=== PATIENT | male | born 1970 | race Caucasian/White ===

== ENCOUNTER 2024-06-27 06:28 | Day surgery (SDC) | payer BC, SELFPAY ==
[2024-06-27 13:44] VITALS: BMI 28.4
[2024-06-27 13:45] VITALS: BMI 28.4
[2024-06-27 13:47] VITALS: BP 137/84
[2024-06-27 17:21] VITALS: BP 119/84
[2024-06-27 17:30] VITALS: BP 94/58
[2024-06-27 17:46] VITALS: BP 118/74
[2024-06-27 18:01] VITALS: BP 132/86
[2024-06-30 05:50] LABS: Glucose - Point of Care 86 mg/dl (70-99)
== END 2024-06-27 18:09 | disposition home or self-care (01) ==
LOC: SDS 06:28
PROVIDERS: ATTENDING PHYSICIAN Internal Medicine Gastroenterology
DX: D12.0 Benign neoplasm of cecum (principal); K64.0 First degree hemorrhoids; Z86.0101 Personal history of adenomatous and serrated colon polyps
CPT/HCPCS: 45390; 88305; 82962

== ENCOUNTER 2024-06-28 05:04 | Inpatient (IN) | payer BC, SELFPAY ==
[2024-06-28] VITALS (17 sets, daily range): BP systolic 91–145; BP diastolic 55–91; BMI 32.2; BMI 29.3
[2024-06-28 01:55] LABS: % Basophils 0.4 % (0-2); % Eosinophils 1.3 % (0-6); % Immature Granulocytes 0.4 % (0-0.5); % Lymphocytes 25.2 % (20.5-51.1); % Monocytes 7.9 % (1.7-9.3); % Neutrophils 64.8 % (42.2-75.2); Absolute Eosinophils 0.2 10^3/uL (0-0.7); Absolute Immature Granulocytes 0.1 10^3/uL (0-0.05); Absolute Lymphocytes 2.9 10^3/uL (1.2-3.4); Absolute Monocytes 0.9 10^3/uL (0.1-0.6); Absolute Neutrophils 7.4 10^3/uL (1.4-6.5); Hematocrit 38.5 % (39.0-52.0); Hemoglobin 13.3 g/dL (13.0-18.0); Mean Corp Hgb Conc. 34.5 g/dL (33.0-37.0); Mean Corpuscular Hgb 29.6 pg (27.0-31.0); Mean Corpuscular Volume 85.6 fL (80.0-94.0); Mean Platelet Volume 9.5 fL (7.4-10.4); Nucleated Red Blood Cells % 0 % (-); Platelet Count 186 10^3/uL (130-400); White Blood Cell Count 11.4 10^3/uL (4.8-10.8)
[2024-06-28 02:22] LABS: ALT (SGPT) 17 U/L (0-50); AST (SGOT) 23 U/L (17-59); Alkaline Phosphatase 75 U/L (38-126); Blood Urea Nitrogen 21 mg/dl (9-20); Calcium 8.7 mg/dl (8.4-10.2); Carbon Dioxide 20 mmol/L (22-30); Chloride 105 mmol/L (98-107); Estimated Creatinine Clearance > 125 ml/min; Glucose 113 mg/dl (70-99); Sodium 140 mmol/L (135-145); Total Bilirubin 0.5 mg/dl (0.2-1.3); Total Protein 5.9 g/dl (6.3-8.2); eGFR > 60.00
--- NOTE | 2024-06-28 02:27 | ED.GENMED ---
History of Present Illness
<LAYA Penny - Last Filed: 06/28/24 17:53>
General
Chief Complaint: Rectal Bleeding
Source: patient
Exam Limitations: none
Time Seen by Provider: 06/28/24 02:05
History of Present Illness
History of Present Illness:
This is a 53 year old male that comes in by ambulance with c/o rectal bleeding. States that he had a colonoscopy on Sunday around 2pm. State that he went home and everything was fine. States that he eat dinner and went to bed. States that he felt
like he had to move his bowel so he got up and there was some dark brown stool with slight red tent. States that he did not think anything of this as he has hemorrhoids. States that there was a little on the tissue. Patient went back to bed and
45min later he needed to go again. States that he got up and fainted. States that he tried to get up again and fainted again. States that when he woke up the second time his son was calling 911. States that he did have a very large polyp removed
about 20mm today. States that he did have diarrhea and that he was dizzy. . Denies any fever, chills, chest pain, SOB, abd pain, nausea, vomiting, headache, urinary burning.
Past History
<LAYA Penny - Last Filed: 06/28/24 17:53>
Past History
ED Past Medical History: HTN, NIDDM and Other (GI bleeding after Colonoscopy)
ED Past Surgical History: None
Social History
Tobacco: Non-smoker
Alcohol: Occasional
Personal:
Living: with family
Review of Systems
<LAYA Penny - Last Filed: 06/28/24 17:53>
Review of Systems
All Other Systems: ROS reviewed and negative except as documented in HPI and ROS
Constitutional: Reports no symptoms; Denies fever or chills
EENT: Reports no symptoms
Respiratory: Reports no symptoms; Denies cough or trouble breathing
Cardiac: Reports no symptoms; Denies chest pain
ABD/GI: Reports diarrhea and bloody stools; Denies abdominal pain, nausea or vomiting
: Reports no symptoms; Denies dysuria, frequency or urgency
Musculoskeletal: Reports no symptoms
Skin: Reports no symptoms
Neurological: Reports dizzy; Denies headache
Psychiatric: Reports no symptoms
Phy Exam
<LAYA Penny - Last Filed: 06/28/24 17:53>
General Physical Exam
General Presentation: no apparent distress
General age: appears stated age
General Skin: warm, dry and pale
General Habitus: normal
General Mental: alert
General Hydration: dry mucous membranes
ENT Exam
ENT Exam: TM's normal, pharynx normal and neck supple
Eye Exam
Eye Exam: EOMI
Cardiovascular Exam
Cardiovascular Exam: regular rate/rhythm, no edema and normal peripheral pulses
Pulmonary Exam
Pulmonary Exam: no respiratory distress, no rales, chest non tender, no crackles, no rhonchi, no cough and other (Faint exp wheezing throughout)
Gastrointestinal Exam
Gastrointestinal Exam: non tender, soft, no organomegaly, no pulsatile mass, non distended and other (Hypoactive bowel sounds, External hemorrhoid noted. Burgundy stool noted in pants and patient rectal area. )
Musculoskeletal Exam
Musculoskeletal Exam: full ROM and no edema
Skin Exam
Skin Exam: warm/dry, no rash, no petechia and pallor
Psychiatric Exam
Psychiatric Exam: normal mood/affect
Course
<LAYA Penny - Last Filed: 06/28/24 17:53>
Orders/Labs/Results
Orders:
Orders
06/28/24 01:41
Electrocardiogram (*1) Urgent
Reason for Study: Syncope
EKG- Treatment ONCE
06/28/24 01:42
CMP [Comprehensive Metabolic Panel] Urgent
Complete Blood Count/With Diff Urgent
06/28/24 01:51
Type+Screen Urgent
06/28/24 02:13
ABO2 Routine
BBK Wristband Number:
Associate notified that ABO2 has been ordered: [id number]
Date: 06/28/24
Time: 02:06
Press Department Manager ID: [id number]
06/28/24 02:19
CT Abd/pelvis Angio W/wo Iv Urgent
Comment:
Reason For Exam: active GI bleeding after colonoscopy
06/28/24 03:51
0.9% Sodium Chloride 1000 ml [Nss] 1,000 ml IV BOLUS
06/28/24 04:17
Admit/Transfer Patient As Directed
Co-Sign Provider:
Level of Care: Inpatient admission
Assign to:: Telemetry
Physician / Group: Lavelle
Diagnosis: GI Bleed
Reason for Telemetry: Arrhythmia
Date to Stop Telemetry: 07/01/24
Time to Stop Telemetry: 11:00
Reason for Hospitalization: GI Bleed
Expected length of stay greater than two midnights?: Yes
ELOS- Estimated Length of Stay in days: 2
I certify the patient meets the requirements for IP care: Yes
PRN Pain Medication Management As Directed
May give lesser potent ordered pain med per pt: Yes
preference::
Protocol:: Medication orders for pain may be administered in a
manner that supports deferring to patient preference
when the pt is:
- Requesting an ordered lesser potent pain medication.
Least to most potent pain medications are defined
as: acetaminophen < NSAID < tramadol < opioids
(morphine, oxycodone, hydromorphone).
- Requesting a lesser dose of the same medication IF
ORDERED.
- Requesting a less intrusive route of administration
if both routes are prescribed by the provider (PO <
IV).
06/28/24 04:18
Code Status As Directed
Resuscitation Status: Full Code
06/28/24 Breakfast
Clear Liquid
At Your Request: Full Participation
06/28/24 07:14
0.9% Sodium Chloride 1000 ml [Nss] 1,000 ml IV 200 mls/hr
Dextrose 50%-Water [Dextrose 50% Syringe] 12.5 grams IV [id number] PRN
Glucagon [GlucaGen] 1 mg IM PRN PRN
Ondansetron Injectable [Zofran] 4 mg IV Q6HPRN PRN
06/28/24 07:14
GASTROINTESTINAL CONSULT Routine
Consulting Provider: cAosta Moody
Was physician already notified: Yes
Reason for consult: Lower GI Bleed / Post-Polypectomy
Activity As Directed
Activity Level: As Tolerated
Bedrest for limited time
Bedrest duration in hours then activity as indicated above:: 24
Comment: bedrest if active bleeding
Bedside Glucose Monitoring As Directed
Frequency: AC&HS
Additional Instructions:: Change to q6h if pt on TPN, tube feeding or not eating
I/O [Intake/ Output] As Directed
Frequency: Per unit guidelines
Orthostatic Vital Signs As Directed
Orthostatic VS Frequency: BID
Pneumatic Compression Sleeves As Directed
Type: Knee high
Vital Signs As Directed
Frequency: Per unit guidelines
DX Deep Vein Thrombosis Video Routine
06/28/24 07:30
Insulin Aspart Corrective Low [Novolog Flexpen-Low Resistance] See Protocol SC AC
06/28/24 08:00
Pantoprazole [Protonix IV] 40 mg IV DAILY
06/28/24 08:04
HH [H&H] Q6H
06/29/24 06:00
Basic Metabolic Panel IN AM
Glycohemoglobin (HgbA1c) IN AM
07/01/24 11:00
DC Protocol for Telemetry ONCE
Abnormal Lab Results
06/28/24
01:42
WBC 11.4 H 10^3/uL
(4.8-10.8)
RBC 4.50 L 10^6/uL
(4.70-6.10)
Hct 38.5 L %
(39.0-52.0)
Abs Immat Gran (auto) 0.1 H 10^3/uL
(0-0.05)
Absolute Neuts (auto) 7.4 H 10^3/uL
(1.4-6.5)
Absolute Monos (auto) 0.9 H 10^3/uL
(0.1-0.6)
Carbon Dioxide 20 L mmol/L
(22-30)
BUN 21 H mg/dl
(9-20)
Glucose 113 H mg/dl
(70-99)
Total Protein 5.9 L g/dl
(6.3-8.2)
06/28/24 01:42
06/28/24 01:42
Leukocytosis, carbon dioxie slightly low, Slight Dehydration. Glucose nonfasting. Total protein low.
Vital Signs
Initial and Last Documented VS:
Initial Vital Signs
BP
91/55
06/28/24 01:30
Last Documented Vital Signs
Temp Pulse Resp BP Pulse Ox
98.1 F 88 20 127/86 96
06/28/24 11:00 06/28/24 11:00 06/28/24 11:00 06/28/24 11:00 06/28/24 11:00
<Etta Diamond, DO - Last Filed: 06/28/24 04:01>
Orders/Labs/Results
Orders:
Orders
06/28/24 01:41
Electrocardiogram (*1) Urgent
Reason for Study: Syncope
EKG- Treatment ONCE
06/28/24 01:42
CMP [Comprehensive Metabolic Panel] Urgent
Complete Blood Count/With Diff Urgent
06/28/24 01:51
Type+Screen Urgent
06/28/24 02:13
ABO2 Routine
BBK Wristband Number:
Associate notified that ABO2 has been ordered: [id number]
Date: 06/28/24
Time: 02:06
Press Department Manager ID: [id number]
06/28/24 02:19
CT Abd/pelvis Angio W/wo Iv Urgent
Comment:
Reason For Exam: active GI bleeding after colonoscopy
06/28/24 03:51
0.9% Sodium Chloride 1000 ml [Nss] 1,000 ml IV BOLUS
06/28/24 04:17
Admit/Transfer Patient As Directed
Co-Sign Provider:
Level of Care: Inpatient admission
Assign to:: Telemetry
Physician / Group: Lavelle
Diagnosis: GI Bleed
Reason for Telemetry: Arrhythmia
Date to Stop Telemetry: 07/01/24
Time to Stop Telemetry: 11:00
Reason for Hospitalization: GI Bleed
Expected length of stay greater than two midnights?: Yes
ELOS- Estimated Length of Stay in days: 2
I certify the patient meets the requirements for IP care: Yes
PRN Pain Medication Management As Directed
May give lesser potent ordered pain med per pt: Yes
preference::
Protocol:: Medication orders for pain may be administered in a
manner that supports deferring to patient preference
when the pt is:
- Requesting an ordered lesser potent pain medication.
Least to most potent pain medications are defined
as: acetaminophen < NSAID < tramadol < opioids
(morphine, oxycodone, hydromorphone).
- Requesting a lesser dose of the same medication IF
ORDERED.
- Requesting a less intrusive route of administration
if both routes are prescribed by the provider (PO <
IV).
06/28/24 04:18
Code Status As Directed
Resuscitation Status: Full Code
06/28/24 Breakfast
Clear Liquid
At Your Request: Full Participation
06/28/24 07:14
0.9% Sodium Chloride 1000 ml [Nss] 1,000 ml IV 200 mls/hr
Dextrose 50%-Water [Dextrose 50% Syringe] 12.5 grams IV [id number] PRN
Glucagon [GlucaGen] 1 mg IM PRN PRN
Ondansetron Injectable [Zofran] 4 mg IV Q6HPRN PRN
06/28/24 07:14
GASTROINTESTINAL CONSULT Routine
Consulting Provider: Acosta Moody
Was physician already notified: Yes
Reason for consult: Lower GI Bleed / Post-Polypectomy
Activity As Directed
Activity Level: As Tolerated
Bedrest for limited time
Bedrest duration in hours then activity as indicated above:: 24
Comment: bedrest if active bleeding
Bedside Glucose Monitoring As Directed
Frequency: AC&HS
Additional Instructions:: Change to q6h if pt on TPN, tube feeding or not eating
I/O [Intake/ Output] As Directed
Frequency: Per unit guidelines
Orthostatic Vital Signs As Directed
Orthostatic VS Frequency: BID
Pneumatic Compression Sleeves As Directed
Type: Knee high
Vital Signs As Directed
Frequency: Per unit guidelines
DX Deep Vein Thrombosis Video Routine
06/28/24 07:30
Insulin Aspart Corrective Low [Novolog Flexpen-Low Resistance] See Protocol SC AC
06/28/24 08:00
Pantoprazole [Protonix IV] 40 mg IV DAILY
06/28/24 08:04
HH [H&H] Q6H
06/29/24 06:00
Basic Metabolic Panel IN AM
Glycohemoglobin (HgbA1c) IN AM
07/01/24 11:00
DC Protocol for Telemetry ONCE
Abnormal Lab Results
06/28/24
01:42
WBC 11.4 H 10^3/uL
(4.8-10.8)
RBC 4.50 L 10^6/uL
(4.70-6.10)
Hct 38.5 L %
(39.0-52.0)
Abs Immat Gran (auto) 0.1 H 10^3/uL
(0-0.05)
Absolute Neuts (auto) 7.4 H 10^3/uL
(1.4-6.5)
Absolute Monos (auto) 0.9 H 10^3/uL
(0.1-0.6)
Carbon Dioxide 20 L mmol/L
(22-30)
BUN 21 H mg/dl
(9-20)
Glucose 113 H mg/dl
(70-99)
Total Protein 5.9 L g/dl
(6.3-8.2)
06/28/24 01:42
06/28/24 01:42
Vital Signs
Initial and Last Documented VS:
Initial Vital Signs
BP
91/55
06/28/24 01:30
Last Documented Vital Signs
Temp Pulse Resp BP Pulse Ox
98.1 F 88 20 127/86 96
06/28/24 11:00 06/28/24 11:00 06/28/24 11:00 06/28/24 11:00 06/28/24 11:00
<LAYA Penny - Last Filed: 06/28/24 17:53>
MDM/Problems Addressed
Differential Diagnosis Includes:
GI bleeding post colonoscopy,
MDM/Problems Addressed:
This is a 53 year old male that comes in by ambulance with c/o GI bleeding after a colonoscopy on Sunday and Syncope.
Will check labs, Get CTA for any active bleeding and admit patient.
Chronic conditions affecting care: DM
Acute Exacerbation and/or Progression of Chronic Illness:
NA
<LAYA Penny - Last Filed: 06/28/24 17:53>
*Pulse Oximetry
Patient hypoxic: no
*EKG
Interpreted by ED Provider?: Yes
Heart Rate: 64
Rate: normal
Rhythm: sinus
Steinauer: left axis deviation
Interval: normal interval
QRS Pattern: normal QRS
Ischemia: no ischemia
*Claim Examiner Interpretation
Rate: normal
Heart Rate: 64
Rhythm: sinus
*Critical Care Note
Total Time (30-74mins, 75-104mins- exclusive of procedures): Not Applicable
<Etta Diamond DO - Last Filed: 06/28/24 04:01>
*Radiology
Radiology exam reviewed: radiology read reviewed
*Critical Care Note
Total Time (30-74mins, 75-104mins- exclusive of procedures): 30
comment:
Critical care statement: A total of 30 minutes of critical care time was provided for this patient. This includes management of unstable vital signs, evaluation of the patient at bedside, reviewing the patient's pertinent medical records, discussion
with consultants, review of old EKGs and review of pertinent medical records. This time with separate from time utilized to perform the aforementioned documented procedures
ED Attending Note
<LAYA Penny - Last Filed: 06/28/24 17:53>
-
Portions of this chart may have been created with voice recognition software.� Occasional wrong word or��sound alike� substitutions may have occurred due to the inherent limitations of voice recognition software.
<Etta Diamond, DO - Last Filed: 06/28/24 04:01>
ED Attending Note
Patient seen and examined by attending physician: Yes
I performed a history and physical exam of patient and discussed management with resident, I reviewed resident's note and agree with documented findings and plan of care.: Yes
ED Attending Note:
53-year-old gentleman who underwent routine surveillance colonoscopy yesterday with removal of large polyp at ileocecal valve. Was doing well until tonight when he developed acute rectal bleeding, passing a large amount of maroon clotted blood with
2 episodes of syncope at home.
No recurrent bleeding since arrival to the ED but moderate hypotension initially, has improved with IV fluid bolus.
Initial hemoglobin 13.3.
CT angio abdomen pelvis shows no active extravasation but reportedly suboptimal bolus timing of arterial phase. It is reassuring however that patient has had no recurrent bleeding since arrival to the ED.
GI on-call, Dr. Moody, aware. She recommended consult to IR if CT shows active extravasation.
Will admit to hospitalist service.
Discharge Plan
Departure
Patient Disposition: Admit
Date of Disposition: 06/28/24
Time of Disposition: 03:57
Admit to: IMU
Admit to doctor: Lavelle
Presentation/result/management discussed w/ accepting MD/DO: Hospitalist
Patient with high blood pressure during this ER visit?: No
Condition: Serious
Discharge Problem:
Acute lower gastrointestinal hemorrhage, Post-polypectomy bleeding
Interventions
Interventions:
*Risk Screen - Suicide Last Done: 06/28/24 01:46
*General Assessment Last Done: 06/28/24 01:47
*Neglect/Abuse Screening Last Done: 06/28/24 01:48
ED- Fall Risk Assessment Last Done: 06/28/24 01:51
*ED COVID-19 Vaccine History Last Done: 06/28/24 01:51
*Nursing Disposition Last Done: 06/28/24 06:42
KG-Nelbdz-Boyhezfwiz Assessment Last Done: 06/28/24 02:01
ED- Cardiac Assessment Last Done: 06/28/24 02:00
ED- Pulmonary Assessment Last Done: 06/28/24 02:00
Discharge Date and Time
Discharge Date/Time: 06/28/24 06:44
[2024-06-28] MEDS: NSS 1000 IV ×4 (03:52→17:58)
--- NOTE | 2024-06-28 04:22 | HPS.HSE ---
Family Physician
-
Family Physician: Ismael Raza
Chief Complaint
-
Syncope / BRBPR
History of Present Illness
Patient is a 53y M with PMH significant for hypertension and DM-II who presents to ED complaining of syncope at home and BRBPR. Patient presented to for colonoscopy / polypectomy on 06/27/24. He underwent resection of polyp (20mm) at the
ileocecal valve. There was incomplete resection and patient was treated further with APC. He felt well following the procedure and throughout the evening. he ate dinner this evening and went to bed.
He woke around 12 midnight with urge to move his bowels. He passed a dark, liquid BM with perhaps tiny streak of blood on the toilet paper. He otherwise felt well and went back to bed.
He woke about 45 minutes later - again with the urge to move his bowels. He stood to walk to the bathroom, but he fell to the floor. ? LOC / syncope at that time. He attempted to get up and had definite episode of syncope at that point. Patient
was noted to be incontinent of moderate amount of grossly bloody stool and clots.
Family called EMS and patient was brought to the ED for further evaluation.
In the ED, patient has passed no additional stool. He continues to feel weak and notes lightheadedness with sitting upright or standing.
Medical History
Past Medical History
Past Medical History: Reports Other
Additional Past Medical History:
Hypertension
DM-II
Colon Polyps
Past Surgical History: Reports None
Social History
Tobacco: Non-smoker
Alcohol: Occasional (Rarely.)
Drug: None
Family History
Family History: Adopted
Allergies / Home Medications
Allergies reflects when Allergies were last updated in [facility].
Home Medications with original date entered in [facility]
Allergy/Medication List:
Allergies
Allergy/AdvReac Type Severity Reaction Status Date / Time
No Known Allergies Allergy Verified 06/27/24 13:33
Home Medications
amlodipine 10 mg tablet 10 mg PO DAILY 06/27/24
atorvastatin 10 mg tablet 10 mg PO DAILY 06/27/24
lisinopril 40 mg tablet 40 mg PO DAILY 06/27/24
metformin 500 mg tablet 1,500 mg PO DAILY 06/27/24
metoprolol succinate 50 mg tablet,extended release 24 hr 50 mg PO DAILY 06/27/24
Review of Systems
-
History Source: Patient
A 12 point ROS was completed and negative except as noted: Yes
Constitutional: Reports Fatigue; Denies Fever or Chills
Respiratory: Denies Cough or Trouble Breathing
Cardiac: Reports Syncope; Denies Chest Pain or Palpitations
Abdomen/GI: Reports Diarrhea, Bloody Stools and Other (Incontinence); Denies Abdominal Pain, Nausea or Vomiting
: Denies Dysuria, Frequency or Incontinence
Musculoskeletal: Denies Joint Pain
Neurological: Reports Dizzy; Denies Headache
Physical Exam
Vital Signs
Vital Signs
Temp Pulse Resp BP Pulse Ox
97.9 F 67 11 120/69 100
06/28/24 01:50 06/28/24 03:15 06/28/24 03:15 06/28/24 03:05 06/28/24 03:15
Physical Exam
General: Other (53y M in no acute distress.)
HEENT: Moist mucous membranes and PERRLA
Respiratory: Clear; No Wheezes, Rales or Rhonchi
Cardiac: S1/S2 and Regular Rhythm; No Murmur
GI: Soft, Non Tender, Non Distended and Normal Bowel Sounds
Musculoskeletal: No Clubbing, No Cyanosis and No Edema
Neuro: AO x 3
Laboratory Results
-
06/28/24 01:42
06/28/24 01:42
Laboratory Results
Total Bilirubin 0.5 mg/dl (0.2-1.3) 06/28/24 01:42
AST 23 U/L (17-59) 06/28/24 01:42
ALT 17 U/L (0-50) 06/28/24 01:42
Alkaline Phosphatase 75 U/L (38-126) 06/28/24 01:42
Impression/Plan
-
A/P: Patient is a 53y M with PMH significant for hypertension and DM-II who presents to ED for evaluation of syncope and BRBPR s/p colonoscopy / polypectomy.
Lower GI Bleed
Acute Post-Polypectomy Bleed
Syncope secondary to the above
- Admit for further evaluation and treatment.
- BP borderline in the ED - likely due to combination of volume / blood losses and BP medications.
- IVF support / volume replacement.
- Follow for any new / recurrent bleeding.
- CTA done in the ED with no evidence of active / ongoing bleeding at present.
- GI evaluation for additional recommendations
- Follow H&H for any changes and consider transfusion if needed.
- Monitor on telemetry overnight given syncope.
- Bedrest for now.
Benign Hypertension
- Presently hypotensive as noted above.
- Hold home antihypertensive regimen acutely.
- Resume gradually once BP is improved / stable.
DM-II
- Stable. Hold PO metformin s/p dye study.
- Follow glucose and cover with SSI if needed.
DVT Prophylaxis: SCDs
Code Status: Full
[2024-06-28 07:10] LABS: Glucose - Point of Care 123 mg/dl (70-99)
[2024-06-28] MEDS: NSS (PRESERVATIVE FREE) 10 ML IV (07:51)
[2024-06-28] MEDS: PROTONIX IV 40 MG IV (07:51)
[2024-06-28 08:23] LABS: Hematocrit 36.5 % (39.0-52.0); Hemoglobin 12.3 g/dL (13.0-18.0)
--- NOTE | 2024-06-28 08:26 | CON.GI ---
Addendum entered and electronically signed by Acosta Moody MD 06/28/24 17:14:
I saw and examined the patient.
The MANAGER E [employer] or PA's note was reviewed and I agree with the note.
Comment:
Pt is a 53 y/o man who had a colonoscopy with a large ileocecal vave removal via EMR on 06/27. As per Dr. Ring, involved and difficult due to location. Starting at night he had a few episodes of rectal bleeding and near syncope. Came to ER and had
a CTA that showed colon with a lot of fluid but no active bleeding. also splenomegaly. He did have one more episode of rectal bleeding since being in the hospital but vitals have remained stable. hgb 13.2 to 12.3 to 11.6.
impression:
postpolypectomy bleed
plan:
1. d/w Dr. Ring that polypectomy site hidden and difficult. Ideally will watch and acute bleeding likely will resolve on its own. Site of bleeding likely difficult to visualize
2. If patient has signs of recurrent bleeding can prep for colonoscopy vs IR for embolization depending on stability of patient
3. follow hgb, follow vital signs; still expect some blood per rectum as colon did have residual blood on CT
4. await path
5. will need repeat colonoscopy in 6 months
d/w sister and pt at length
Original Note:
Consultation
-
Date/Time Consultation Requested: 06/28/24714
Date/Time Consultation Performed: 06/28/24829
Requesting Provider: Jordon Valderrama DO
Performing Provider: LAYA Kauffman, Acosta Moody MD
Reason for Consultation: GI bleed
Medical History
Chief Complaint / HPI
Chief Complaint: GI bleed
History of Present Illness:
Pt is a 53yo with hx HTN, NIDDM, colon polyps with hx colonoscopy in 05/2023 with One diminutive polyp in the cecum,and questionable polyp at IC valve. biopsy revealed TA of both polyps. Pt was recommended repeat colonoscopy and went 06.[address] Ring with noted hemorrhoids, and 20mm polyp at IC valve with EMR and difficult to access with incomplete resection with multiple maneuvers and APC completed with bx pending. He was recommended again attempt in 3-6 months. He now present with
bleeding. On admission hbg was 13.3 with drop to 12.3 after admission. In review with patient he was feeling well post procedure. He had BM with some darker stool and tinge of pink at 11pm then 45 min later larger bloody stools. He then has
episodes of syncope and has had about 4 stools since that time. Last stool with dark burgundy blood. 06/28 CTA neg active bleed, mod fluid in colon , mild to mod splenomegaly.
He otherwise denies GI issues with dysphagia, GERD, nausea, vomiting, abdominal pain, chronic diarrhea or constipation.
Past Medical History
Past Medical History: HTN, NIDDM and Other (colon polyps)
Social History
Tobacco: Non-Smoker
Alcohol: Occasional
Drug: None
Personal:
Living: With Family
Employment: Employed
Family History
Family History: Adopted
Allergies / Home Medications
Allergy/AdvReac Type Severity Reaction Status Date / Time
No Known Allergies Allergy Verified 06/27/24 13:33
�Medication �Instructions �Recorded
amlodipine 10 mg tablet 10 mg PO DAILY 06/27/24
atorvastatin 10 mg tablet 10 mg PO DAILY 06/27/24
lisinopril 40 mg tablet 40 mg PO DAILY 06/27/24
metformin 500 mg tablet 1,500 mg PO DAILY 06/27/24
metoprolol succinate 50 mg 50 mg PO DAILY 06/27/24
tablet,extended release 24 hr
Review of Systems
-
History Source: Patient
Constitutional: Reports No Symptoms
EENT: Reports No Symptoms
Respiratory: Reports No Symptoms
Cardiac: Reports Syncope
Abdomen/GI: Reports Bloody Stools
: Reports No Symptoms
Musculoskeletal: Reports No Symptoms
Skin: Reports No Symptoms
Neurological: Reports Weakness
Endocrine: Reports No Symptoms
Hematologic/Lymphatic: Reports Bleeding
Vital Signs
Temp Pulse Resp BP Pulse Ox
97.9 F 58 14 106/64 97
06/28/24 06:42 06/28/24 06:42 06/28/24 06:42 06/28/24 06:42 06/28/24 06:42
Physical Exam
Exam
General: Well Developed, Well Nourished and No Apparent Distress
HEENT: Normocephalic and Anicteric
Respiratory: Clear
Cardiac: Regular Rhythm
GI: Soft, Non Tender and Non Distended
Rectal: Other (per nursing recent stool with dark burgundy color noted in picture )
Musculoskeletal: No Clubbing and No Cyanosis
Skin: Warm and Dry
Neuro: Awake, Alert and AO x 3
Psych: Calm
Results
WBC 11.4 10^3/uL (4.8-10.8) H 06/28/24 01:42
Hgb 12.3 g/dL (13.0-18.0) L 06/28/24 08:04
Hct 36.5 % (39.0-52.0) L 06/28/24 08:04
MCV 85.6 fL (80.0-94.0) 06/28/24 01:42
Plt Count 186 10^3/uL (130-400) 06/28/24 01:42
Absolute Neuts (auto) 7.4 10^3/uL (1.4-6.5) H 06/28/24 01:42
Sodium 140 mmol/L (135-145) 06/28/24 01:42
Potassium 4.0 mmol/L (3.5-5.1) 06/28/24 01:42
Chloride 105 mmol/L (98-107) 06/28/24 01:42
Carbon Dioxide 20 mmol/L (22-30) L 06/28/24 01:42
BUN 21 mg/dl (9-20) H 06/28/24 01:42
Creatinine 0.9 mg/dL (0.7-1.3) 06/28/24 01:42
Calcium 8.7 mg/dl (8.4-10.2) 06/28/24 01:42
Total Bilirubin 0.5 mg/dl (0.2-1.3) 06/28/24 01:42
AST 23 U/L (17-59) 06/28/24 01:42
ALT 17 U/L (0-50) 06/28/24 01:42
Alkaline Phosphatase 75 U/L (38-126) 06/28/24 01:42
Diagnostic Image Results:
06/28 CTA
1. No CTA evidence for acute active gastrointestinal bleeding.
2. Mild diffuse fluid distention of the colon.
3. Mild to moderate splenomegaly.
4. Transitional lumbosacral vertebral segment.
Prior GI Procedures:
EGD:
Colonoscopy: 06/27/24 Travis Ring - Hemorrhoids found on perianal exam.
- One 20 mm polyp at the ileocecal valve, removed with
mucosal resection. Incomplete resection. Resected
tissue retrieved. Treated with argon plasma
coagulation (APC).
- Internal hemorrhoids.
- Mucosal resection was performed. Resection was felt
to be incomplete. The resected tissue was retrieved.
colonoscopy:05/21/23 - One diminutive polyp in the cecum, removed with a
jumbo cold forceps. Resected and retrieved.
- One questionable polyp at the ileocecal valve.
Biopsied.
- The examination was otherwise normal.
bx TA
Assessment / Plan
-
Pt is a 53yo with hx HTN, NIDDM, colon polyps with hx colonoscopy in 05/2023 with One diminutive polyp in the cecum,and questionable polyp at IC valve. biopsy revealed TA of both polyps. Pt was recommended repeat colonoscopy and went 06.[address] Ring with noted hemorrhoids, and 20mm polyp at IC valve with EMR and difficult to access with incomplete resection with multiple maneuvers and APC completed with bx pending. He was recommended again attempt in 3-6 months. He now present with
bleeding. On admission hbg was 13.3 with drop to 12.3 after admission. In review with patient he was feeling well post procedure. He had BM with some darker stool and tinge of pink at 11pm then 45 min later larger bloody stools. He then has
episodes of syncope and has had about 4 stools since that time. Last stool with dark burgundy blood. 06/28 CTA neg active bleed, mod fluid in colon , mild to mod splenomegaly.
-post polypectomy bleeding
-syncope prior to admission
-06/27 partial EMR of IC valve polyp
-hx adenomatous polyps
-mild anemia
-mild leukocytosis
other med problems:
-HTN
-NIDDM
-mild SM on CT
PLAN:
etiology of bleeding related to post polypectomy bleeding with EMR completed 06/27 vs other
plan for monitor of stools
if increased will need to consider prep and colonoscopy vs repeat CTA(neg on admission)/angio
trend hbg /transfuse as needed
NPO
bedrest with bleeding and syncope
cont IVF
PPI daily
update pt on plan
-
-
Thank you for consultation and allowing me to participate in the patient's care. Please call the store consultant GI physician during the after hours with any questions or concerns.
--- NOTE | 2024-06-28 08:51 | W.PN.HOSP.TC ---
Today's Communication/Plan
-
see A/P
Assessment / Plan
Assessment / Plan
HPI: 53 yo M with PMH significant for hypertension and DM-II who presented to ED complaining of syncope at home and BRBPR. Patient presented to for colonoscopy / polypectomy on 06/27/24. He underwent resection of polyp (20 mm) at the ileocecal
valve. There was incomplete resection and patient was treated further with APC. He felt well following the procedure and throughout the evening. He ate dinner and went to bed.
He woke around 12 midnight with urge to move his bowels. He passed a dark, liquid BM with perhaps tiny streak of blood on the toilet paper. He otherwise felt well and went back to bed.
He woke about 45 minutes later - again with the urge to move his bowels. He stood to walk to the bathroom, but he fell to the floor. ?LOC / syncope at that time. He attempted to get up and had definite episode of syncope at that point. Patient
was noted to be incontinent of moderate amount of grossly bloody stool and clots.
Family called EMS and patient was brought to the ED for further evaluation.
In the ED, patient has passed no additional stool. He continues to feel weak and notes lightheadedness with sitting upright or standing.
A/P:
# Lower GI Bleed likely from Acute Post-Polypectomy Bleed
# Syncope secondary to the above
BP was borderline on admission, improved s/p IVF support / volume replacement.
Follow for any new / recurrent bleeding.
CTA done in the ED with no evidence of active / ongoing bleeding at present.
GI evaluation for additional recommendations
Follow H&H for any changes and consider transfusion if needed.
Monitor on telemetry overnight given syncope.
PT OT eval
# Benign Hypertension
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
# DM-II, Stable.
Hold PO metformin s/p dye study.
Follow glucose and cover with SSI if needed.
DVT Prophylaxis: SCDs
Code Status: Full
Anticipated Discharge: Within 24 hours
Subjective/Interval History
-
Date of Service: June 28, 2024
Objective Data
-
Labs:
Laboratory Results
06/28/24 06/28/24 06/28/24
01:42 08:04 13:14
WBC 11.4 H
Hgb 13.3 12.3 L Pending
Hct 38.5 L 36.5 L Pending
Plt Count 186
Sodium 140
Potassium 4.0
Chloride 105
Carbon Dioxide 20 L
BUN 21 H
Creatinine 0.9
Glucose 113 H
Calcium 8.7
Total Bilirubin 0.5
AST 23
ALT 17
Alkaline Phosphatase 75
06/28/24
19:14
WBC
Hgb Pending
Hct Pending
Plt Count
Sodium
Potassium
Chloride
Carbon Dioxide
BUN
Creatinine
Glucose
Calcium
Total Bilirubin
AST
ALT
Alkaline Phosphatase
Vital Signs:
Vital Signs
Temp Pulse Resp BP Pulse Ox
36.7 C 87 16 127/75 98
06/28/24 07:00 06/28/24 07:00 06/28/24 07:00 06/28/24 07:00 06/28/24 07:00
I&O
06/27/24 06/28/24 06/29/24
06:59 06:59 06:59
Intake Total 2000 / 2000
Output Total 400 / 400
Balance 1600 / 1600
Review of Systems
-
All other systems: Reviewed and negative
Abdomen/GI: Reports Other (bloody BM)
Physical Exam
-
General: Well Developed, Well Nourished, No Apparent Distress, Comfortable and Conversant; Negative Respiratory Distress
HEENT: Normocephalic, Atraumatic, Nose Appears Normal and Ears Appear Normal; Negative Oxygen
Respiratory: Clear to Auscultation and Non Labored Respirations; Negative Accessory Resp Muscle Use
Cardiac: Regular Rhythm and S1/S2
GI: Soft, Nontender, Nondistended and Normal Bowel Sounds
Skin: Warm and Dry
Neuro: Awake, Alert, Oriented and AO x 3
Psych: Calm and Intact Judgement/Insight
Data Reviewed
-
Labs: Labs Reviewed by me
[2024-06-28 12:09] LABS: Glucose - Point of Care 96 mg/dl (70-99)
--- NOTE | 2024-06-28 12:35 | CM ---
Initial assessment completed with pt.
Pt is a 53yr old admitted with GI Bleed.
Pt lives with his sig other in a 2 story twin with 2 lisa.
Pt is indep at baseline and and expects to dc to home with no needs at dc.
Pt has no equip or hx of VN/SNF
PCP Ismael Raza
Pharm; [facility]
PLAN; Home with no needs identified
[2024-06-28 13:12] LABS: Hematocrit 33.9 % (39.0-52.0); Hemoglobin 11.6 g/dL (13.0-18.0)
[2024-06-28 17:24] LABS: Glucose - Point of Care 83 mg/dl (70-99)
[2024-06-28 21:15] LABS: Hematocrit 33.3 % (39.0-52.0); Hemoglobin 11.5 g/dL (13.0-18.0)
[2024-06-28 21:44] LABS: Glucose - Point of Care 90 mg/dl (70-99)
[2024-06-29] VITALS (7 sets, daily range): BP systolic 134–177; BP diastolic 84–104; PULSE 77–99; O2SAT 97
[2024-06-29] MEDS: NSS 1000 IV (02:39)
[2024-06-29 06:33] LABS: Hemoglobin 11.1 g/dL (13.0-18.0); Mean Corp Hgb Conc. 33.6 g/dL (33.0-37.0); Mean Corpuscular Hgb 30.1 pg (27.0-31.0); Mean Corpuscular Volume 89.4 fL (80.0-94.0); Mean Platelet Volume 9.9 fL (7.4-10.4); Platelet Count 146 10^3/uL (130-400); Red Blood Cell Count 3.69 10^6/uL (4.70-6.10); Red Cell Dist. Width 13.1 % (11.5-14.5); White Blood Cell Count 6.5 10^3/uL (4.8-10.8)
[2024-06-29 06:59] LABS: Blood Urea Nitrogen 9 mg/dl (9-20); Calcium 8.5 mg/dl (8.4-10.2); Carbon Dioxide 25 mmol/L (22-30); Chloride 109 mmol/L (98-107); Estimated Creatinine Clearance 112 ml/min; Glucose 88 mg/dl (70-99); Potassium 4.3 mmol/L (3.5-5.1); Sodium 142 mmol/L (135-145); eGFR > 60.00
--- NOTE | 2024-06-29 08:14 | W.PN.HOSP.TC ---
Addendum entered and electronically signed by Lisa Haynse MD 06/29/24 12:56:
Total DC time 40 minutes. Discussed with GI and RN
Original Note:
Today's Communication/Plan
-
see A/P
Assessment / Plan
Assessment / Plan
HPI: 53 yo M with PMH significant for hypertension and DM-II who presented to ED complaining of syncope at home and BRBPR. Patient presented to for colonoscopy / polypectomy on 06/27/24. He underwent resection of polyp (20 mm) at the ileocecal
valve. There was incomplete resection and patient was treated further with APC. He felt well following the procedure and throughout the evening. He ate dinner and went to bed.
He woke around 12 midnight with urge to move his bowels. He passed a dark, liquid BM with perhaps tiny streak of blood on the toilet paper. He otherwise felt well and went back to bed.
He woke about 45 minutes later - again with the urge to move his bowels. He stood to walk to the bathroom, but he fell to the floor. ?LOC / syncope at that time. He attempted to get up and had definite episode of syncope at that point. Patient
was noted to be incontinent of moderate amount of grossly bloody stool and clots.
Family called EMS and patient was brought to the ED for further evaluation.
In the ED, patient has passed no additional stool. He continues to feel weak and notes lightheadedness with sitting upright or standing.
A/P:
# Lower GI Bleed likely from Acute Post-Polypectomy Bleed
# Syncope secondary to the above
BP was borderline on admission, improved with IVF support / volume replacement.
Follow for any new / recurrent bleeding.
CTA done in the ED with no evidence of active / ongoing bleeding at present.
Follow H&H for any changes and consider transfusion if needed.
Monitor on telemetry given syncope.
PT OT eval
GI on board
# Benign Hypertension
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
# DM-II, Stable.
Hold PO metformin s/p dye study.
Follow glucose and cover with SSI if needed.
DVT Prophylaxis: SCDs
Code Status: Full
DW GI team. If repeat Hgb at noon today is stable, OK for discharge; if not, would keep for repeat scope.
DW RN
Anticipated Discharge: Within 24 hours
Subjective/Interval History
-
Date of Service: June 29, 2024
Objective Data
-
Labs:
Laboratory Results
06/28/24 06/29/24
21:09 05:41
WBC 6.5
Hgb 11.5 L 11.1 L
Hct 33.3 L 33.0 L
Plt Count 146 D
Sodium 142
Potassium 4.3
Chloride 109 H
Carbon Dioxide 25
BUN 9
Creatinine 0.9
Glucose 88
Calcium 8.5
Vital Signs:
Vital Signs
Temp Pulse Resp BP Pulse Ox
37.3 C 84 18 161/98 98
06/29/24 08:09 06/29/24 08:09 06/29/24 08:09 06/29/24 08:09 06/29/24 08:09
I&O
06/28/24 06/29/24 06/30/24
06:59 06:59 06:59
Intake Total 2000 / 2000 1200 / 1200
Output Total 400 / 400 700 / 700 1300 / 1300
Balance 1600 / 1600 500 / 500 -1300 / -1300
Review of Systems
-
All other systems: Reviewed and negative
Abdomen/GI: Reports Other (bloody BM has resolved )
Physical Exam
-
General: Well Developed, Well Nourished, No Apparent Distress, Comfortable and Conversant; Negative Respiratory Distress
HEENT: Normocephalic, Atraumatic, Nose Appears Normal and Ears Appear Normal; Negative Oxygen
Respiratory: Clear to Auscultation and Non Labored Respirations; Negative Accessory Resp Muscle Use
Cardiac: Regular Rhythm and S1/S2
GI: Soft, Nontender, Nondistended and Normal Bowel Sounds
Skin: Warm and Dry
Neuro: Awake, Alert, Oriented and AO x 3
Psych: Calm and Intact Judgement/Insight
Data Reviewed
-
Labs: Labs Reviewed by me
[2024-06-29] MEDS: NSS (PRESERVATIVE FREE) 10 ML IV (08:26)
[2024-06-29] MEDS: PROTONIX IV 40 MG IV (08:26)
[2024-06-29] MEDS: ZESTRIL 40 MG PO (08:27)
[2024-06-29] MEDS: TOPROL XL 50 MG PO (08:27)
[2024-06-29 09:23] LABS: Glucose - Point of Care 112 mg/dl (70-99)
--- NOTE | 2024-06-29 09:42 | W.PN.GI.CBS2 ---
Today's Communication / Plan
-
monitor hgb
Assessment / Plan
-
Pt is a 53yo with hx HTN, NIDDM, colon polyps with hx colonoscopy in 05/2023 with One diminutive polyp in the cecum,and questionable polyp at IC valve. biopsy revealed TA of both polyps. Pt was recommended repeat colonoscopy and went . with
Dr. Ring with noted hemorrhoids, and 20mm polyp at IC valve with EMR and difficult to access with incomplete resection with multiple maneuvers and APC completed with bx pending. He was recommended again attempt in 3-6 months. He now present with
bleeding. On admission hbg was 13.3 with drop to 12.3 after admission. In review with patient he was feeling well post procedure. He had BM with some darker stool and tinge of pink at 11pm then 45 min later larger bloody stools. He then has
episodes of syncope and has had about 4 stools since that time. Last stool with dark burgundy blood. 06/28 CTA neg active bleed, mod fluid in colon , mild to mod splenomegaly.
-post polypectomy bleeding
-syncope prior to admission
-06/27 partial EMR of IC valve polyp
-hx adenomatous polyps
-mild anemia
-mild leukocytosis
other med problems:
-HTN
-NIDDM
-mild SM on CT
PLAN:
hgb has been stable (over 11 on last 3 blood draws), redraw early afternoon, if still stable can have diet advanced and can be discharged
if drifting down would keep on clears and continue to monitor in case colonoscopy needed
PPI daily
Dr. Haynes and pt aware
Subjective
Subjective
Date of Service: June 29, 2024
Pt has not had any bms since yesterday. passing gas. no abdominal pain, tolerating clears
Objective
Data Reviewed
Laboratory Data:
Laboratory Results
06/29/24 05:41
Laboratory Results
Magnesium 2.0 mg/dl (1.6-2.3) 06/29/24 05:41
Total Bilirubin 0.5 mg/dl (0.2-1.3) 06/28/24 01:42
AST 23 U/L (17-59) 06/28/24 01:42
ALT 17 U/L (0-50) 06/28/24 01:42
Alkaline Phosphatase 75 U/L (38-126) 06/28/24 01:42
Vital Signs and I&O:
Vital Signs
Temp Pulse Resp BP Pulse Ox
99.2 F 84 18 161/98 98
06/29/24 08:09 06/29/24 08:09 06/29/24 08:09 06/29/24 08:09 06/29/24 08:09
I&O
06/28/24 06/29/24 06/30/24
06:59 06:59 06:59
Intake Total 2000 / 2000 1200 / 1200
Output Total 400 / 400 700 / 700 1300 / 1300
Balance 1600 / 1600 500 / 500 -1300 / -1300
Physical Exam
Physical Exam
GI: Soft, Non Distended and Non Tender
[2024-06-29 09:49] LABS: Glycohemoglobin (HgbA1c) 5.1 % (4.0-5.6)
[2024-06-29 11:11] LABS: Glucose - Point of Care 112 mg/dl (70-99)
[2024-06-29] MEDS: NSS IV ×2 (11:30)
[2024-06-29 12:18] LABS: Hematocrit 33.6 % (39.0-52.0); Hemoglobin 11.4 g/dL (13.0-18.0)
--- NOTE | 2024-06-29 12:47 | W.DCSUMMARY ---
Discharge Summary
Discharge Data
Date of Admission: 06/28/24
Date of Discharge: 06/29/24
-
Pending Results: No
Hospital Course
Principal Diagnosis:
Syncope and bright red blood per rectum (BRBPR)/GI bleed, likely Acute Post-Polypectomy Bleed
Chronic Diagnoses:�
Benign Hypertension
DM-II, Stable.
Consultations:�
Gastroenterology
Procedures:�
None
Clinical course:�
This is a 53-year-old male with past medical history as stated above, who presented with syncope and BRBPR.
He underwent colonoscopy / polypectomy on 06/27/24 and had an incomplete resection of a polyp at the ileocecal valve. This was further treated with APC.
Problem 1:
Lower GI Bleed with syncope from Acute Post-Polypectomy Bleed.
His blood pressure improved after IV fluid support/volume repletion.
His CTA done in the ED showed no evidence of active / ongoing bleeding.
His GI bleed resolved while in the hospital and his hemoglobin had been stable.
He was cleared for discharge per GI.
He can follow-up for outpatient CBC to monitor his hemoglobin, with result to his PCP.
As for the rest of his medical problems, they were stable during his hospital stay.
Discharge Plan
-
Patient Disposition: Home (Routine Discharge)
Discharge Diagnosis/Procedures: Lower GI Bleed likely from Acute Post-Polypectomy Bleed;
Syncope secondary to the above
Condition: Good
Diet: As tolerated
Activity: As tolerated
Driving Restrictions: As prior to admission
Blood Work: CBC in 1 week, result to PCP
Referrals:
Ismael Raza MD [Family Provider] - in less than 1 week
Additional Discharge Medication Instructions: Do NOT take your blood pressure medications if your systolic blood pressure is less than 110
Prescriptions:
Continued
metformin 500 mg Tablet
1,500 mg PO DAILY
atorvastatin 10 mg Tablet
10 mg PO DAILY
amlodipine 10 mg Tablet
10 mg PO DAILY Qty: 0 0RF
Rx Instructions:
hold for SBP < 110
metoprolol succinate 50 mg Tablet Extended Release 24 Hr
50 mg PO DAILY Qty: 0 0RF
Rx Instructions:
hold for SBP < 110
lisinopril 40 mg Tablet
40 mg PO DAILY Qty: 0 0RF
Rx Instructions:
hold for SBP < 110
Discharge Orders:
Discharge Patient (As Directed); Ordered 06/29/24
Ordered By: Lisa Haynes
Discharge Date and Time
Print Language: GAMBIAN
--- NOTE | 2024-06-29 15:00 | CM ---
Spoke with patient who was preparing for discharge. The patient says he feels ready for discharge home today, and sayd he plans on having lunch to make sure he could tolerate his diet. His will provide transport home.
No CM d/c needs identified.
Plan home today.
== END 2024-06-29 16:11 | disposition home or self-care (01) | DRG 920 ==
LOC: 4 WEST ACU 05:04
PROVIDERS: Nurse Practitioner Adult Health; ADMITTING PHYSICIAN Hospitalist; ATTENDING PHYSICIAN Internal Medicine; CONSULT PHYSICIAN Internal Medicine; EMERGENCY PHYSICIAN Emergency Medicine; FAMILY PHYSICIAN Family Medicine
DX: K91.840 Postprocedural hemorrhage of a digestive system organ or structure following a digestive system procedure (principal); K92.2 Gastrointestinal hemorrhage, unspecified; I10 Essential (primary) hypertension; I95.9 Hypotension, unspecified; E11.9 Type 2 diabetes mellitus without complications; Y83.8 Other surgical procedures as the cause of abnormal reaction of the patient, or of later complication, without mention of misadventure at the time of the procedure
CPT/HCPCS: 74174; 80048; 80053; 82962; 83036; 83735; 85014; 85018; 85025; 85027; 86850; 86900; 86901; 93005; 97161; 99291; Q9967

== ENCOUNTER 2025-01-09 06:19 | Day surgery (SDC) | payer BC, SELFPAY ==
[2025-01-09 07:17] VITALS: BMI 29.2
[2025-01-09 07:18] VITALS: BP 137/92; BMI 29.2
[2025-01-09 07:18] LABS: Glucose - Point of Care 83 mg/dl (70-99)
[2025-01-09 09:33] VITALS: BP 107/85
[2025-01-09 09:41] LABS: Glucose - Point of Care 100 mg/dl (70-99)
[2025-01-09 09:45] VITALS: BP 114/78
[2025-01-09 10:00] VITALS: BP 108/78
== END 2025-01-09 10:12 | disposition home or self-care (01) ==
LOC: GI 06:19
PROVIDERS: ATTENDING PHYSICIAN Internal Medicine Gastroenterology
DX: Z12.11 Encounter for screening for malignant neoplasm of colon (principal); D12.0 Benign neoplasm of cecum; K64.0 First degree hemorrhoids; Z86.0101 Personal history of adenomatous and serrated colon polyps; Z98.890 Other specified postprocedural states
CPT/HCPCS: 45390; 45385; 88305; 82962

== ENCOUNTER → 2025-08-14 08:01 | Outpatient (REF) | payer BC, SELFPAY | LOC: HWRCS 08:01 | PROVIDERS: ATTENDING PHYSICIAN Internal Medicine; FAMILY PHYSICIAN Family Medicine | DX: R42 Dizziness and giddiness (principal); T73.3XXA Exhaustion due to excessive exertion, initial encounter; R09.89 Other specified symptoms and signs involving the circulatory and respiratory systems; I10 Essential (primary) hypertension | CPT/HCPCS: 93306 ==

== ENCOUNTER → 2025-08-21 07:41 | Outpatient (REF) | payer BC, SELFPAY | LOC: HWRCS 07:41 | PROVIDERS: ATTENDING PHYSICIAN Internal Medicine; FAMILY PHYSICIAN Family Medicine | DX: R42 Dizziness and giddiness (principal); T73.3XXA Exhaustion due to excessive exertion, initial encounter; R09.89 Other specified symptoms and signs involving the circulatory and respiratory systems; I10 Essential (primary) hypertension | CPT/HCPCS: 78452; 93017; A9500 ==